=== PATIENT | female | born 1980 | race Caucasian/White ===

== ENCOUNTER 2022-08-20 20:45 | Emergency (ER) | payer BC ==
[~2022-08-20] VITALS: Ht 175.3 cm; Wt 81.0 kg
[2022-08-20 20:52] VITALS: BP 148/93
--- NOTE | 2022-08-20 21:06 | ED Abdominal Pain ---
General Chief Complaint: Abdominal/GI Problems Stated Complaint: ABD PAIN Nursing Triage Note: Pt presents with c/o abdominal pain, tenderness, decreased appetite, and nausea/vomiting/diarrhea. Pt reports she initially became sick approx 1 week ago after going out to dinner. Her pain started the next day. She's had 2 large watery stools, and 2 episodes of vomiting with increasing pain today. Source of Information: Patient Exam Limitations: No Limitations History of Present Illness Date Seen by Provider: Aug 20, 2022 Time Seen by Provider: 21:05 Initial Comments This 42-year-old woman presents to the emergency room with complaints of abdominal pain across the upper abdomen. It started as a sharp pain in the right upper quadrant about 1 week ago. She has a surgically absent gallbladder. She has had significant nausea and has not eaten a full meal in a week. She has had a small amount of vomiting and a small amount of diarrhea. She denies any hematochezia or hematemesis. She has had no fever. The taste and smell of food causes extreme nausea. She contacted her primary care provider, Jaqueline Garcia in [place], who arranged for a CT scan next Monday. She does COVID testing for her work every Monday and was negative last Monday. She denies any respiratory symptoms. Symptoms have gotten perhaps a bit worse the latter part of this week. She has not been taking any medications to treat. She denies as she has had a tubal ligation and ablation. She has diabetes for which she takes Mounjaro which she skipped this week at the recommendation of her doctor. She no longer takes metformin. Allergies and Home Medications Allergies Coded Allergies: No Known Drug Allergies (Unverified , 08/20/22) Patient Home Medication List Home Medication List Reviewed: Yes Ondansetron (Ondansetron Odt) 4 Mg Tab.rapdis, 4 MG SL Q4H PRN for NA USEA/VOMITING Prescribed by: SHERLY MAZARIEGOS on 08/20/222339 Promethazine HCl (Promethazine Tablet) 25 Mg Tablet, 25 MG PO Q8H PRN for NAUSEA/VOMITING-2ND LINE Prescribed by: SHERLY MAZARIEGOS on 08/20/222339 Review of Systems Review of Systems Constitutional: no symptoms reported EENTM: No Symptoms Reported Respiratory: No Symptoms Reported Cardiovascular: No Symptoms Reported Gastrointestinal: See HPI Genitourinary: No Symptoms Reported Musculoskeletal: no symptoms reported Skin: no symptoms reported Psychiatric/Neurological: No Symptoms Reported Endocrine: No Symptoms Reported Hematologic/Lymphatic: No Symptoms Reported Past Ikyvlpo-[id number]-[id number] Hx Patient Social History Tobacco Use?: No Use of E-Cig and/or Vaping dev: No Substance use?: No Alcohol Use?: No Immunizations Up To Date Influenza Vaccine Up-to-Date: No; Not Current Past Medical History Surgeries: Yes Abdominal (Uterine ablation, D&C), Section, Gallbladder, Orthopedic (C4-C7 fusion), Tubal Ligation Respiratory: No Cardiac: No Neurological: No : No Reproductive Disorders: No Genitourinary: No Gastrointestinal: No Musculoskeletal: No Endocrine: Yes Hypothyroidsim, Diabetes, Non-Insulin dep HEENT: No Cancer: No Psychosocial: Yes Depression Physical Exam Vital Signs Vital Signs - First Documented 08/20/22 20:52 Temp 36.0 Pulse 79 Resp 18 B/P (MAP) 148/93 (111) Capillary Refill : Less Than 3 Seconds Height/Weight/BMI Height: '" Weight: lbs. oz. kg; 26.00 BMI Method: General Appearance: WD/WN, no apparent distress HEENT: normal ENT inspection, other (Oropharynx somewhat dry) Neck: normal inspection Respiratory: lungs clear, normal breath sounds, no respiratory distress Cardiovascular: regular rate, rhythm, no edema, no murmur Gastrointestinal: normal bowel sounds, soft; No distended; tenderness (Across the upper abdomen) Extremities: normal inspection, no pedal edema Neurologic/Psychiatric: alert, normal mood/affect, oriented x 3 Skin: normal color, warm/dry Progress/Results/Core Measures Results/Orders Lab Results Laboratory Tests Test 08/20/22 21:18 08/20/22 21:29 Range/Units White Blood Count 6.4 4.3-11.0 10^3/uL Red Blood Count 4.54 3.80-5.11 10^6/uL Hemoglobin 14.5 11.5-16.0 g/dL Hematocrit 43 35-52 % Mean Corpuscular Volume 95 80-99 fL Mean Corpuscular Hemoglobin 32 25-34 pg Mean Corpuscular Hemoglobin Concent 34 32-36 g/dL Red Cell Distribution Width 12.6 10.0-14.5 % Platelet Count 172 130-400 10^3/uL Mean Platelet Volume 11.4 9.0-12.2 fL Immature Granulocyte % (Auto) 0 % Neutrophils (%) (Auto) 56 42-75 % Lymphocytes (%) (Auto) 34 12-44 % Monocytes (%) (Auto) 8 0-12 % Eosinophils (%) (Auto) 1 0-10 % Basophils (%) (Auto) 1 0-10 % Neutrophils # (Auto) 3.6 1.8-7.8 10^3/uL Lymphocytes # (Auto) 2.2 1.0-4.0 10^3/uL Monocytes # (Auto) 0.5 0.0-1.0 10^3/uL Eosinophils # (Auto) 0.1 0.0-0.3 10^3/uL Basophils # (Auto) 0.1 0.0-0.1 10^3/uL Immature Granulocyte # (Auto) 0.0 0.0-0.1 10^3/uL Sodium Level 140 135-145 MMOL/L Potassium Level 3.5 L 3.6-5.0 MMOL/L Chloride Level 107 98-107 MMOL/L Carbon Dioxide Level 23 21-32 MMOL/L Anion Gap 10 5-14 MMOL/L Blood Urea Nitrogen 11 7-18 MG/DL Creatinine 0.81 0.60-1.30 MG/DL Estimat Glomerular Filtration Rate 93 BUN/Creatinine Ratio 14 Glucose Level 81 70-105 MG/DL Calcium Level 9.4 8.5-10.1 MG/DL Corrected Calcium 9.2 8.5-10.1 MG/DL Magnesium Level 2.1 1.6-2.4 MG/DL Total Bilirubin 0.5 0.1-1.0 MG/DL Aspartate Amino Transf (AST/SGOT) 20 5-34 U/L Alanine Aminotransferase (ALT/SGPT) 28 0-55 U/L Alkaline Phosphatase 68 40-136 U/L C-Reactive Protein High Sensitivity 0.19 0.00-0.50 MG/DL Total Protein 7.4 6.4-8.2 GM/DL Albumin 4.3 3.2-4.5 GM/DL Lipase 66 8-78 U/L Thyroid Stimulating Hormone (TSH) 3.18 0.35-4.94 UIU/ML Free Thyroxine 1.00 0.70-1.48 NG/DL Urine Color YELLOW Urine Clarity SL CLOUDY Urine pH 6.0 5-9 Urine Specific [place] 1.020 1.016-1.022 Urine Protein NEGATIVE NEGATIVE Urine Glucose (UA) NEGATIVE NEGATIVE Urine Ketones TRACE H NEGATIVE Urine Nitrite NEGATIVE NEGATIVE Urine Bilirubin NEGATIVE NEGATIVE Urine Urobilinogen 1.0 < = 1.0 MG/DL Urine Leukocyte Esterase NEGATIVE NEGATIVE Urine RBC (Auto) NEGATIVE NEGATIVE Urine RBC NONE /HPF Urine WBC 0-2 /HPF Urine Squamous Epithelial Cells 25-50 H /HPF Urine Crystals NONE /LPF Urine Bacteria FEW H /HPF Urine Casts NONE /LPF Urine Mucus SMALL H /LPF Urine Culture Indicated NO My Orders Orders - SHERLY SONG MD Cbc With Automated Diff (08/20/22 21:06) Comprehensive Metabolic Panel (08/20/22 21:06) Hs C Reactive Protein (08/20/22 21:06) Lipase (08/20/22 21:06) Magnesium (08/20/22 21:06) Ua Culture If Indicated (08/20/22 21:06) Ed Iv/Invasive Line Start (08/20/22 21:06) Ondansetron Injection (Zofran Injectio (08/20/22 21:15) Thyroid Stimulating Hormone (08/20/22 21:18) Free T4 (Free Thyroxine) (08/20/22 21:18) Lidocaine 2% Viscous 15 Ml (Xylocaine Vi (08/20/22 22:15) Antacid Suspension (Mylanta Suspension (08/20/22 22:15) Promethazine Injection (Phenergan Injec (08/20/22 22:30) Ns (Ivpb) (Sodium Chloride 0.9%) (08/20/22 22:30) Pantoprazole Tablet (Protonix Tablet) (08/20/22 23:45) Medications Given in ED Current Medications Medications Dose Ordered Sig/Oliver Route Start Time Stop Time Status Last Admin Dose Admin Al Hydrox/Mg Hydrox/Simethicone 30 ml ONCE ONCE PO 08/20/22 22:15 08/20/22 22:16 DC 08/20/22 23:10 30 ML Lidocaine HCl 15 ml ONCE ONCE PO 08/20/22 22:15 08/20/22 22:16 DC 08/20/22 23:10 15 ML Ondansetron HCl 8 mg ONCE ONCE IVP 08/20/22 21:15 08/20/22 21:16 DC 08/20/22 21:22 8 MG Pantoprazole Sodium 40 mg ONCE ONCE PO 08/20/22 23:45 08/20/22 23:46 DC 08/20/22 23:39 40 MG Promethazine HCl 25 mg ONCE ONCE IVP 08/20/22 22:30 08/20/22 22:31 DC 08/20/22 22:41 25 MG Sodium Chloride 250 ml @ 999 mls/hr Q16M ONCE IV 08/20/22 22:30 08/20/22 22:45 DC 08/20/22 22:42 999 MLS/HR Vital Signs/I&O 08/20/22 20:52 Temp 36.0 Pulse 79 Resp 18 B/P (MAP) 148/93 (111) Blood Pressure Mean: 111 Progress Progress Note #1: Time: 21:24 Progress Note Patient was interviewed and examined. She is being treated with a liter of IV fluid and Zofran. Labs and urinalysis are pending. Further work-up and miguel tment will be pending review of those results. Progress Note #2: Time: 22:30 Progress Note Nausea was briefly relieved by Zofran. She was hydrated with a liter of LR. Labs were unremarkable. Differential on the CBC demonstrated a lymphocytic predominance which suggests viral illness. All labs were reviewed including CBC, CMP, lipase, urinalysis, and magnesium in their entirety. They were unremarkable. Patient is being further treated for nausea with Phenergan 25 mg and a 250 mL normal saline bolus. A GI cocktail will then be given as a trial. Progress Note #3: Progress Note She had moderate improvement with Phenergan and GI cocktail. Based on lab evaluation and response to treatment, she likely has gastritis, esophagitis, and/or duodenitis caused by viral illness. This was discussed with patient and treatment recommendations were reviewed. Discharge instructions were reviewed. See discharge instructions for further discussion. Departure Impression Primary Impression: Nausea vomiting and diarrhea Additional Impression: Upper abdominal pain Disposition: 01 HOME, SELF-CARE Condition: Improved Departure-Patient Inst. Decision time for Depature: 23:36 Referrals: NO,LOCAL PHYSICIAN (PCP/Family) Primary Care Physician Patient Instructions: Severe Abdominal Pain, Adult (DC) Add. Discharge Instructions: Drink plenty of noncarbonated clear liquids to stay well-hydrated. Gradually advance your diet with small quantities of bland food as tolerated. Take an antiacid medication such as omeprazole 20 mg purchased [id number]. Use twice daily for at least 2 weeks. You may additionally use Tums or the generic equivalent for more immediate relief of pain. Tylenol (acetaminophen) up to 1000 mg every 6 hours may also be used for treatment of pain but avoid use of NSAID medications such as ibuprofen or naproxen as they may worsen stomach irritation. Use Zofran (ondansetron) as prescribed for primary relief of nausea. Add Phenergan (promethazine) if needed for nausea not controlled by Zofran. Phenergan may make you drowsy so use with caution and avoid driving, operating machinery, or making important decisions while on Phenergan. Give your primary care provider and update on your status on Monday. Discussed whether you should proceed with the CT scan at that time. Avoid the following: Eating large meals, eating close to bedtime, caffeine, carb onation, chocolate, citrus fruits and juices, tomato products, mints, alcohol, tobacco, spicy foods, fatty/greasy foods, NSAID medications such as ibuprofen or naproxen, or anything else you know irritates your stomach. Also avoid dairy until your diarrhea has been absent for at least a couple of days. Return to care if you have worsening symptoms despite following these instructi ons. All discharge instructions reviewed with patient and/or family. Voiced understanding. Scripts Promethazine HCl (Promethazine Tablet) 25 Mg Tablet 25 MG PO Q8H PRN for NAUSEA/VOMITING-2ND LINE, #10 TAB 0 Refills Prov: SHERLY SONG MD 08/20/22 Ondansetron (Ondansetron Odt) 4 Mg Tab.rapdis 4 MG SL Q4H PRN for NAUSEA/VOMITING, #10 TAB Prov: SHERLY SONG MD 08/20/22 SHERLY SONG MD Aug 20, 2022 21:06
[2022-08-20] MEDS ORDERED: ONDANSETRON 4 MG/2 ML (SDV) Z0FRAN IVP ONE (21:15)
[2022-08-20 21:27] LABS: BASOPHILS # (AUTO) 0.1 10^3/uL (0.0-0.1); BASOPHILS % (AUTO) 1 % (0-10); EOSINOPHILS # (AUTO) 0.1 10^3/uL (0.0-0.3); EOSINOPHILS % (AUTO) 1 % (0-10); HEMATOCRIT 43 % (35-52); HEMOGLOBIN 14.5 g/dL (11.5-16.0); LYMPHOCYTES # (AUTO) 2.2 10^3/uL (1.0-4.0); LYMPHOCYTES % (AUTO) 34 % (12-44); MEAN CORPUSCULAR HEMOGLOBIN 32 pg (25-34); MEAN CORPUSCULAR HGB CONC 34 g/dL (32-36); MEAN CORPUSCULAR VOLUME 95 fL (80-99); MEAN PLATELET VOLUME 11.4 fL (9.0-12.2); MONOCYTES # (AUTO) 0.5 10^3/uL (0.0-1.0); MONOCYTES % (AUTO) 8 % (0-12); NEUTROPHILS # (AUTO) 3.6 10^3/uL (1.8-7.8); NEUTROPHILS % (AUTO) 56 % (42-75); PLATELET COUNT 172 10^3/uL (130-400); WHITE BLOOD COUNT 6.4 10^3/uL (4.3-11.0)
[2022-08-20 21:35] LABS: BILIRUBIN,URINE NEGATIVE (NEGATIVE); CLARITY,URINE SL CLOUDY; COLOR,URINE YELLOW; GLUCOSE, URINE (UA) NEGATIVE (NEGATIVE); KETONES,URINE TRACE (NEGATIVE); LEUKOCYTE ESTERASE ,URINE NEGATIVE (NEGATIVE); NITRITE,URINE NEGATIVE (NEGATIVE); PROTEIN,URINE NEGATIVE (NEGATIVE)
[2022-08-20 21:50] LABS: ALBUMIN 4.3 GM/DL (3.2-4.5); BILIRUBIN,TOTAL 0.5 MG/DL (0.1-1.0); CALCIUM 9.4 MG/DL (8.5-10.1); CREATININE SERUM 0.81 MG/DL (0.60-1.30); MAGNESIUM 2.1 MG/DL (1.6-2.4); POTASSIUM 3.5 MMOL/L (3.6-5.0); TOTAL PROTEIN 7.4 GM/DL (6.4-8.2)
[2022-08-20 21:53] LABS: BACTERIA,URINE FEW /HPF; SQUAMOUS EPITHELIAL CELL,UR 25-50 /HPF; WBC,URINE 0-2 /HPF
[2022-08-20] MEDS ORDERED: LIDOCAINE 2% VISCOUS 15 ML UDC PO ONE (22:15)
[2022-08-20] MEDS ORDERED: ANTACID SUSP 30 ML UDC (MYLANTA) PO ONE (22:15)
[2022-08-20] MEDS ORDERED: PROMETHAZINE INJ 25 MG/ML (PHENERGAN) AMP IVP ONE (22:30)
[2022-08-20] MEDS ORDERED: NS (IVPB) 250 ML IV ONE (22:30)
[2022-08-20] MEDS ORDERED: ONDA4TAB11 SL (23:40)
[2022-08-20] MEDS ORDERED: PROM25TA14 PO (23:40)
[2022-08-20] MEDS ORDERED: PANTOPRAZOLE 40 MG (PROTONIX) TAB PO ONE (23:45)
== END 2022-08-20 23:45 | disposition home or self-care (01) ==
LOC: ER 20:47
DX: R11.2 Nausea with vomiting, unspecified (principal); R19.7 Diarrhea, unspecified; R10.10 Upper abdominal pain, unspecified; Z28.310 Unvaccinated for COVID-19
CPT/HCPCS: 36415; 80053; 81000; 83690; 83735; 84439; 84443; 85025; 86141